=== PATIENT | male | born 1980 | race Two or more races ===

== ENCOUNTER 2019-08-30 08:35 | Emergency (ER) | payer OTHER ==
[2019-08-30 09:03] VITALS: BP 135/72
--- NOTE | 2019-08-30 09:04 | PHYS DOC ---
Past History Past Medical History: No Pertinent History Past Surgical History: No Surgical History Additional Smoking Information: Electronic cigarette Alcohol Use: None Drug Use: None Adult General Chief Complaint Chief Complaint: FLU SYMPTOM HPI HPI Patient is a 38-year-old male presents complaining of nasal congestion and sore throat. Similar symptoms to his daughter who was diagnosed with influenza yesterday. He denies any difficulty breathing. Discomfort is mild to moderate. No nausea or vomiting. Subjective fever, no shaking chills. No recent travel. No thing makes the symptoms better or worse.[] Review of Systems Review of Systems Constitutional: See history of present illness[] Eyes: Denies change in visual acuity, redness, or eye pain [] HENT: Denies sinus pain or ear pain, see history of present illness[] Respiratory: Denies shortness of breath, reports mild cough, nonproductive. No hemoptysis. [] Cardiovascular: No chest pain or palpitations[] GI: Denies abdominal pain, nausea, vomiting, bloody stools or diarrhea [] : Denies dysuria or hematuria [] Musculoskeletal: Denies back pain or joint pain [] Integument: Denies rash or skin lesions [] Neurologic: Denies headache, focal weakness or sensory changes [] Endocrine: Denies polyuria or polydipsia [] All other systems were reviewed and found to be within normal limits, except as documented in this note. Physical Exam Physical Exam Constitutional: Well developed, well nourished, no acute distress, non-toxic appearance. [] HENT: Normocephalic, atraumatic, bilateral external ears normal, oropharynx moist, no oral exudates, nose normal. [] Eyes: PERRLA, EOMI, conjunctiva normal, no discharge. [] Neck: Normal range of motion, no tenderness, supple, no stridor. [] Cardiovascular:Heart rate regular rhythm, no murmur [] Lungs & Thorax: Bilateral breath sounds clear to auscultation [] Abdomen: Bowel sounds normal, soft, no tenderness, no masses, no pulsatile masses. [] Skin: Warm, dry, no erythema, no rash. [] Back: No tenderness, no CVA tenderness. [] Extremities: No tenderness, no cyanosis, no clubbing, ROM intact, no edema. [] Neurologic: Alert and oriented X 3, normal motor function, normal sensory function, no focal deficits noted. [] Psychologic: Affect normal, judgement normal, mood normal. [] EKG EKG [] Radiology/Procedures Radiology/Procedures [] Course & Med Decision Making Course & Med Decision Making Pertinent Labs and Imaging studies reviewed. (See chart for details) ED course: Patient arrived, was placed in bed, and tolerated exam well offered chest x-ray to the patient because of his history of using E cigarettes and patient having a mild cough. Patient defers chest x-ray. Findings and plan were discussed with the patient who voiced understanding. All questions were answered. He was discharged in improved condition. Medical decision making: Patient most likely has flu symptoms given his daughter testing positive for flow, and she is with him as a second patient today. There is no evidence of pneumonia, hypoxia, pneumothorax, nor significant systemic toxicity. No evidence of oral intake intolerance. Will start the patient on Tamiflu as well as provide symptom relief.[] Dragon Disclaimer Dragon Disclaimer This electronic medical record was generated, in whole or in part, using a voice recognition dictation system. Departure Departure: Impression: Primary Impression: Influenza Disposition: 01 HOME, SELF-CARE Condition: IMPROVED Referrals: PCPHASMUKH (PCP) Patient Instructions: Influenza, Adult Additional Instructions: Drink plenty of fluids. Follow-up with your regular doctor/sick call in 2 days. Return to the emergency department if if cult he breathing, fever not controlled with medication, unable to tolerate liquids, or any other concerns. Scripts Ibuprofen (IBUPROFEN) 800 Mg Tablet 1 TAB PO TID for pain or fever, #30 TAB Prov: ASHWIN KINGSLEY DO 08/30/19 Oseltamivir Phosphate (TAMIFLU) 75 Mg Capsule 1 CAP PO BID for influenza, #10 CAP Prov: ASHWIN KINGSLEY DO 08/30/19 D-Methorphan Hb/Prometh Hcl (PROMETHAZINE-DM SYRUP) 118 Ml Syrup 5 ML PO PRN Q4HRS for CONGESTION, #120 ML Prov: ASHWIN KINGSLEY DO 08/30/19 ASHWIN KINGSLEY DO Aug 30, 2019 09:04
[2019-08-30] MEDS ORDERED: IBUP800T19 PO (09:07)
[2019-08-30] MEDS ORDERED: PROM118S9 PO (09:07)
[2019-08-30] MEDS ORDERED: OSEL75CA PO (09:07)
== END 2019-08-30 09:14 | disposition home or self-care (01) ==
LOC: ER 08:35
DX: J11.1 Influenza due to unidentified influenza virus with other respiratory manifestations (principal); F17.210 Nicotine dependence, cigarettes, uncomplicated
CPT/HCPCS: 99283